=== PATIENT | male | born 1980 | race Caucasian/White ===

== ENCOUNTER → 2018-04-21 | Outpatient (CLI) | payer BC, OTHER ==
--- NOTE | 2018-04-21 11:48 | Diagnostic Imaging Report ---
EXAMINATION: Renal ultrasound. CLINICAL HISTORY :Chronic kidney disease stage III COMPARISON: <None available.> TECHNIQUE: Grayscale and color Doppler evaluation of the kidneys and bladder was performed in transverse and longitudinal planes. DISCUSSION: RIGHT KIDNEY: The right kidney measures 10.6 cm in length and shows increased echogenicity. No hydronephrosis, shadowing calculi or solid mass lesions. LEFT KIDNEY: The left kidney measures 10.6 cm in length and shows increased echogenicity. No hydronephrosis, shadowing calculi or solid mass lesions. BLADDER: Unremarkable. Right and left ureteral jets are identified. No significant post void residual volume. Prostate: 3.8 x 2.6 x 4.9 cm, estimated volume 25.5 cc IMPRESSION: Increased renal cortical echogenicity compatible with medical renal disease. No significant post void residual volume in the urinary bladder. Signed by: Dr. Gen Can M.D. on 04/21/2018 11:45 AM
== END ==
LOC: US 09:55
PROVIDERS: ATTEND Internal Medicine Nephrology
DX: N18.3 Chronic kidney disease, stage 3 (moderate) (principal)
CPT/HCPCS: 76770; 76857